=== PATIENT | female | born 1970 | race Caucasian/White ===

== ENCOUNTER 2019-08-03 08:33 | Day surgery (SDC) | payer OTHER ==
[~2019-08-03 08:33] MED LIST: Lactated Ringers 1,000 ML IV ONE; Lactated Ringers 1,000 ML IV SCH
[2019-08-03 09:31] LABS: Hematocrit 42.6 % (35-47); Hemoglobin 14.2 gm/dl (12.0-16.0); Mean Cell Volume 89.9 fl (78-100); Mean Corpuscular Hgb Concent. 33.3 g/dl (32-36); Mean Platelet Volume 10.3 fl (6-9.5); Platelet Count 318 K/mm3 (150-450); Red Blood Count 4.74 M/mm3 (4.1-5.4); Red Cell Distribution Width 13.9 % (11.5-14.0); White Blood Count 14.9 K/mm3 (4.0-10.5)
[2019-08-03] MEDS ORDERED: DIPRIVAN 200 MG/20 ML IV ONE ×5 (09:50→10:44)
[2019-08-03 09:51] LABS: BAND 1 % (0.0-2.0); Eosinophil 4 % (0.00-3.0); Lymphocytes 25 % (24-44); Monocyte 5 % (0.0-12.0); Neutrophils 65 % (36.0-66.0); Platelet Estimate NORMAL (NORMAL); Total Cells Counted 100
[2019-08-03 11:51] VITALS: O2SAT 98
[2019-08-03 11:56] VITALS: BP 130/68; PULSE 72
--- NOTE | 2019-08-19 08:39 | OP ---
PROCEDURE DATE/TIME: 08/03/2019 0952 PREOPERATIVE DIAGNOSES: 1) Dysphagia. 2) Screening colonoscopy. POSTOPERATIVE DIAGNOSES: 1) Reflux with biopsies pending to rule out Ferguson's disease. 2) Esophageal spasm. 3) Antral gastritis. 4) Multiple colonic polyps including significant large polyp necessitating tattoo dye placement for repeat surveillance. PROCEDURES: 1) EGD with biopsies. 2) Colonoscopy with hot snare polypectomy x7. 3) Tattoo dye placement. PROCEDURE PERFORMED BY: Lor Reina M.D. ANESTHESIA: MAC. ESTIMATED BLOOD LOSS: Minimal. COMPLICATIONS: None. SPECIMENS: 1) Antral biopsy to rule out Helicobacter pylori disease. 2) Distal esophagus biopsies; rule out Ferguson's disease. 3) Descending colon polyps. 4) Sigmoid colon polyp at 38 cm. 5) Small descending sessile polyp. 6) Descending colon polyp at 75 cm. 7) Sigmoid colon polyp at 55 cm and 51 cm. 8) Sessile sigmoid colon polyp at 35 cm. 9) The descending colon polyp was also large and pedunculated at approximately 90 cm. HISTORY: This is a patient who presents for EGD and colonoscopy. Risks, benefits, alternatives, H&P, consent reviewed and confirmed. DESCRIPTION OF PROCEDURE: She was then brought back to the endoscopy suite and laid in the left lateral decubitus position. A complete time out was performed. The scope was gently introduced into the mouth, oropharynx and down into the esophagus, stomach and duodenum. The duodenum was normal. In the stomach the patient had antral gastritis this mild, erythematous. She did not have any significant ulcers and took an antral biopsy to rule out Helicobacter pylori with cold forceps and insured hemostasis. We then did a full inspection of the remainder of her stomach which I did not find any other issues and then we carefully withdrew the scope taking a good view at the distal esophagus and identifying reflux changes with squamous island for approximately 1.5 cm length mainly lateral. Biopsies were taken to rule out Ferguson's disease. These sites are hemostatic and the scope was completely removed. The remainder of the esophageal mucosa looked normal. She did have some spasm in her esophagus. The patient tolerated the procedure well. She was then repositioned for colonoscopy. First, a rectal exam was done. The scope was then inserted and gently advanced to the level of the cecum. There were some relatively thick and significant amount of liquid stool throughout her colon. I did have to copiously irrigate and suction to remove this. We were able to advance the scope to the level of the cecum and identified the ileocecal valve and appendiceal orifice. I copiously irrigated here. She did have some small particulate matter throughout the entirety of her colon as well which could limit the view of a very smaller, flat polyp. Her valve was normal. Her appendiceal orifice looked normal. We carefully withdrew the scope. We continued to copiously irrigate and to take a good look around. I found multiple large polyps starting at the level of the descending colon throughout the level of her sigmoid. The first polyp was large and pedunculated at 90 cm. In the descending colon this was taken with hot snare in its entirety. Site was hemostatic. This looked benign. There was another large polyp at 75 cm in the descending colon which was actually quite huge and it was on a stalk. It looked like it could potentially have some dysplasia but did not look like selvin cancer to me on gross view. I did place a tattoo approximately 1.5 cm distal to this site for further surveillance. The polyp was too huge to be suctioned through the scope and so I did have to remove it on the end of the scope as I did with her other large polyps later on as well and so we just removed the polyp this way. We were able to completely retrieve the polyp and send it to pathology. She then had a small descending sessile polyp which was taken with hot snare in entirety. Site hemostatic. She then had two more polyps at the level of approximately 55 and 51 cm in the sigmoid colon that were taken with hot snare in its entirety and then another sessile sigmoid polyp at approximately 35 cm taken in its entirety as well. These all appeared to be benign. She also had a very large pedunculated polyp at 38 cm which did appear to be benign but this one was larger and I did have to remove the scope with the polyp suction on the end to allow full removal and then replaced the scope. I re-inspected each of the polyp sites. Everything looked hemostatic. All polyps were removed in entirety. The patient has significant polyp disease. Tentatively at this time, we are going to place her on a short interval colonoscopy depending on the final results of the pathology report and that will be determined when pathology comes back at her next appointment.
== END 2019-08-03 11:55 | disposition home or self-care (01) ==
LOC: SDC 08:33
PROVIDERS: ATTEND Surgery
DX: Z12.11 Encounter for screening for malignant neoplasm of colon (principal); R13.10 Dysphagia, unspecified; K29.50 Unspecified chronic gastritis without bleeding; K44.9 Diaphragmatic hernia without obstruction or gangrene; D12.4 Benign neoplasm of descending colon; D12.5 Benign neoplasm of sigmoid colon; K22.4 Dyskinesia of esophagus; K21.9 Gastro-esophageal reflux disease without esophagitis; E11.9 Type 2 diabetes mellitus without complications; I10 Essential (primary) hypertension; J44.9 Chronic obstructive pulmonary disease, unspecified; Z79.899 Other long term (current) drug therapy
CPT/HCPCS: 36415; 82962; 85025; 88305; J2704